=== PATIENT | male | born 1980 | race Caucasian/White ===

== ENCOUNTER → 2020-07-27 | Outpatient (CLI) | payer OTHER | END | disposition home or self-care (01) | LOC: CVU 07:05 | PROVIDERS: ATTEND Internal Medicine Clinical Cardiac Electrophysiology | DX: I65.22 Occlusion and stenosis of left carotid artery (principal) | CPT/HCPCS: 93880 ==

== ENCOUNTER → 2020-09-08 | Outpatient (CLI) | payer OTHER | END | disposition home or self-care (01) | LOC: CARD 08:59 | PROVIDERS: ATTEND Family Medicine | DX: G60.9 Hereditary and idiopathic neuropathy, unspecified (principal); R53.1 Weakness | CPT/HCPCS: 95886; 95911 ==